=== PATIENT | female | born 1960 | race Caucasian/White ===

== ENCOUNTER 2016-11-18 10:24 | Day surgery (SDC) | payer OTHER ==
[~2016-11-18] VITALS: Ht 162.6 cm; Wt 62.8 kg
[~2016-11-18 10:24] MED LIST: HARD NAILS2.5 MG PO; LEVOTHYROXINE25 MCG PO; VITAMIN D-31000 UNIT PO
[2016-11-18] MEDS ORDERED: NORCO1 TA1 PO (15:05)
--- NOTE | 2016-11-18 15:06 | Provider's Discharge Care Plan ---
Problem, Goal, Plan Problem List 1. Rectal mucosa prolapse
--- NOTE | 2016-11-18 15:06 | Provider's Discharge Care Plan ---
Problem, Goal, Plan Problem List 1. Rectal mucosa prolapse
[2016-11-18 16:26] VITALS: BP 144/89
[2016-11-18 16:46] VITALS: BP 112/75
[2016-11-18 17:04] VITALS: BP 112/78
== END 2016-11-18 18:10 | disposition home or self-care (01) ==
LOC: OR SRH 10:24 → SCU SRH 10:25 → OR SRH 12:30 → ACUTE2 SRH 16:53 → OR SRH 18:10
PROVIDERS: Surgery
PROC: 0DS Gastrointestinal System, Reposition (ICD-10-PCS; principal; 2016-11-18 12:30)
DX: K64.3 Fourth degree hemorrhoids (principal)